=== PATIENT | female | born 1945 | race American Indian/Alaskan Native ===

== ENCOUNTER 2020-05-06 23:02 | Emergency (ER) | payer MEDICARE ==
[~2020-05-06 23:02] MED LIST: EPINEPHrine 1 MG/10 ML SYRINGE ONE; SODIUM BICARB 8.4% 50 MEQ/50 ML SYRINGE IV ONE
--- NOTE | 2020-05-06 23:20 | Emergency Department Report ---
ED CPR HPI - General Stated Complaint: CARDIAC ARREST Time Seen by Provider: 05/06/20 23:02 Source: EMS Mode of arrival: Stretcher Limitations: Altered Mental Status, Physical Limitation - History of Present Illness Initial Comments: Patient is a 75-year-old female that presents emergency room for cardiac arrest. Patient brought in by EMS. Report received from EMS. EMS gave the patient epi, bicarb. EMS intubated the patient and placed a right IO. Patient's downtime was 30 minutes prior to EMS arrival. EMS is working the patient for 10 minutes. Patient's downtime is a total of 40 minutes. Radio report received from EMS 10 minutes prior to arrival. MD Complaint: found unresponsive Onset/Timin -: minute(s) Place: home Bystander CPR Performed: No AED Applied by Bystander/Web Solutions Architect: No Shock Advised: No Initial Findings in the Field: unresponsive, no respirations, no pulse, PEA ROSC in the Field: No Associated Injuries: No Treatments Prior to Arrival: intubation, BMV, chest compressions, epinephrine mgs #, sodium bicarbonate - Related Data Allergies Allergy/AdvReac Type Severity Reaction Status Date / Time Penicillins Allergy Severe THROAT Unverified 11/19/15 08:37 [facility] ED Review of Systems ROS: Stated complaint: CARDIAC ARREST Other details as noted in HPI Comment: Unobtainable due to pts medical conditions ED Past Medical Hx - Past Medical History Previous Medical History?: Yes Hx Hypertension: Yes Hx Congestive Heart Failure: Yes Hx Diabetes: Yes Hx Renal Disease: Yes - Surgical History Past Surgical History?: No - Family History Family history: no significant - Social History Smoking Status: Unknown if ever smoked Substance Use Type: None ED Physical Exam - General Limitations: Altered Mental Status, Physical Limitation General appearance: obese - Head Head exam: Present: atraumatic, normocephalic - Eye Eye exam: Present: other (Pupils are fixed and dilated.) - ENT ENT exam: Present: mucous membranes moist - Neck Neck exam: Present: normal inspection - Respiratory Respiratory exam: Present: other (Patient is intubated and placement verified.) - Cardiovascular Cardiovascular Exam: Present: other (No pulse noted) - GI/Abdominal GI/Abdominal exam: Present: soft - Rectal Rectal exam: Present: deferred - Extremities Exam Extremities exam: Present: normal inspection (Except for right IO), other (Patient's right IO was functioning.) - Neurological Exam Neurological exam: Present: altered - Skin Skin exam: Present: warm, dry, normal color. Absent: rash ED Course - Reevaluation(s) Reevaluation #1: Patient arrived via EMS. Report received from EMS. Patient transferred to our stretcher and compressions and CPR continued. ET tube readjusted and placement verified. 05/06/20 23:02 Reevaluation #2: Resuscitation efforts have been terminated due to no signs of life. Patient is given multiple medication and multiple rounds of CPR. No cardiac motion noted. Patient is asystole on the monitor. No pulse noted. Code ran in accordance with ACLS guidelines. Family support given once the family arrives. 05/06/20 23:10 Reevaluation #3: Family meeting done. Family support given. All concerns addressed. 05/06/20 23:29 ED Medical Decision Making - Medical Decision Making Patient is a 75-year-old female that presents emergency room for cardiac arrest. Patient had a prolonged downtime of 30 minutes prior to initiation of CPR and ACLS protocol. Patient was brought in by EMS. Report received from EMS prior to arrival and after EMS arrived to our ER. Patient's had multiple medications and multiple rounds of CPR. Patient was intubated by EMS and had a right tibial IO placed. Patient had multiple rounds of meds and CPR in the ER and the patient's resuscitation efforts were terminated due to no signs of life. Code ran in accordance with ACLS protocol. Family support given. - Differential Diagnosis Cardiac arrest, PE, NV, respiratory arrest Critical Care Time: Yes Critical care time in (mins) excluding proc time.: 35 Critical care attestation.: If time is entered above; I have spent that time in minutes in the direct care of this critically ill patient, excluding procedure time. Critical Care Time: 35 minutes ED Disposition Clinical Impression: Cardiac arrest Disposition: DC-20 Is pt being admited?: No Does the pt Need Aspirin: No Condition: Undetermined Time of Disposition: 23:50
== END 2020-05-07 07:00 ==
LOC: ED 23:02
DX: I46.9 Cardiac arrest, cause unspecified (principal); E11.9 Type 2 diabetes mellitus without complications; I11.0 Hypertensive heart disease with heart failure; I50.9 Heart failure, unspecified; Z79.899 Other long term (current) drug therapy
CPT/HCPCS: 92950; 99285; J0171